=== PATIENT | male | born 1980 | race Two or more races ===

== ENCOUNTER 2024-10-29 21:57 | Emergency (ER) | payer OTHER, SELFPAY ==
[2024-10-29 22:02] VITALS: BP 140/110; PULSE 117; TEMP 37.1; O2SAT 96; BMI 25.8
--- OUTSIDE RECORDS SUMMARY | 2024-10-29 22:06 | XMS_ITS | Clinical Summary ---
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 Phone Unavailable Primary Care Provider Unavailabl e Allergies No known active allergies Medications No known medications Active Problems Problem Noted Date Diagnosed Date Hepatitis C antibody test positive 11/13/2014 Cannabis abuse 11/12/2014 Cocaine dependence, continuous 11/12/2014 Nicotine withdrawal 11/12/2014 Opioid dependence, continuous 11/12/2014 Dependence on nicotine from cigarettes 5 Social History Tobacco Use Types Packs/Day Years Used Date Smoking Tobacco: Every Day Cigarettes Smokeless Tobacco: Never Alcohol Use Standard Drinks/Week Comments Not Currently 0 (1 standard drink = 0.6 oz pur e alcohol) Sex and Gender Information Value Date Recorded Sex Assigned at Not on file Legal Sex Male 1:46 AM EDT Gender Identity Not on file Sexual Orientation Not on file Last Filed Vital Signs Vital Sign Reading Time Taken Comments Blood Pressure 110/82 06/17/2019 10:08 PM EDT Pulse 106 06/17/2019 10:08 PM EDT Temperature 37.3 C (99.2 F) 06/17/2019 10:08 PM EDT Respiratory Rate 16 06/17/2019 10:08 PM EDT Oxygen Saturation 100% 06/17/2019 10:08 PM EDT Inhaled Oxygen Concentration - - Weight 71.7 kg (158 lb) 06/17/2019 10:08 PM EDT Height 170.2 cm (5' 7 ) 06/17/2019 10:08 PM EDT Body Mass Index 24.75 06/17/2019 10:08 PM EDT Plan of Treatment Not on file [place] [address] [place] [address]
--- OUTSIDE RECORDS SUMMARY | 2024-10-29 22:06 | XMS_ITS | Patient Health Record ---
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
[2024-10-29] MEDS: DIPHTH,PERTUSS(ACELL),TET VAC 0.5 ML SYRINGE IM (22:33)
[2024-10-29] MEDS: SILVER SULFADIAZINE 1% CREAM 25 GM TUBE 1 APPLIC TOPICAL (22:34)
== END 2024-10-29 22:42 | disposition home or self-care (01) ==
PROVIDERS: Emergency Provider Internal Medicine
DX: T24.622A Corrosion of second degree of left knee, initial encounter (principal); T24.621A Corrosion of second degree of right knee, initial encounter; Z23 Encounter for immunization
CPT/HCPCS: 90471; 99283